=== PATIENT | male | born 1995 | race Caucasian/White ===

== ENCOUNTER 2019-01-31 13:40 | Inpatient (IN) | payer OTHER ==
[~2019-01-31] VITALS: Ht 167.6 cm; Wt 69.2 kg
[2019-01-31] MEDS ORDERED: diphenhydrAMINE 50 MG/1 ML VIAL IV ONE (14:15)
[2019-01-31] MEDS ORDERED: MECLIZINE HCL 25 MG TABLET PO ONE (14:15)
[2019-01-31] MEDS ORDERED: IV NORMAL SALINE 1000 ML BAG IV ONE ×2 (14:15→15:15)
[2019-01-31] MEDS ORDERED: METOCLOPRAMIDE HCL 10 MG/2 ML VIAL IV ONE (14:15)
[2019-01-31] MEDS ORDERED: diphenhydrAMINE 50 MG/1 ML VIAL ONE (14:17)
[2019-01-31] MEDS ORDERED: MECLIZINE HCL 25 MG TABLET ONE (14:17)
[2019-01-31] MEDS ORDERED: METOCLOPRAMIDE HCL 10 MG/2 ML VIAL ONE (14:17)
[2019-01-31 14:24] LABS: CREATININE 0.8 mg/dL (0.6-1.3); POTASSIUM 4.1 mmol/L (3.5-5.1)
[2019-01-31 14:29] LABS: BASOPHILS % (AUTO) 0.1 % (0.0-2.0); HEMATOCRIT 46.6 % (36.7-47.1); HEMOGLOBIN 16.1 g/dL (12.5-16.3); LYMPHOCYTES # (AUTO) 0.5 K/uL (20.0-40.0); LYMPHOCYTES % (AUTO) 5.8 % (20.5-51.5); MEAN CORPUSCULAR HEMOGLOBIN 30.2 uug (23.8-33.4); MEAN CORPUSCULAR HGB CONC 35 g/dL (32.5-36.3); MEAN CORPUSCULAR VOLUME 87.5 fL (73.0-96.2); MONOCYTES # (AUTO) 0.3 K/uL (2.0-10.0); MONOCYTES % (AUTO) 3.4 % (0.0-11.0); NEUTROPHILS # (AUTO) 8.6 K/uL (1.8-8.9); NEUTROPHILS % (AUTO) 90.7 % (38.5-71.5); PLATELET COUNT (AUTO) 289 K/uL (152-348); RED BLOOD CELL COUNT(AUTO) 5.33 MIL/uL (4.06-5.63); WHITE BLOOD COUNT (AUTO) 9.4 K/uL (3.6-10.2)
[2019-01-31 14:30] LABS: BILIRUBIN,DIRECT 0.1 mg/dL (0.0-0.2); BILIRUBIN,TOTAL 0.5 mg/dL (0.2-1.0); TOTAL PROTEIN, SERUM 7.6 g/dL (6.4-8.2)
[2019-01-31 14:58] LABS: ETHANOL < 3 MG/DL (0-0)
[2019-01-31 15:39] LABS: *BILIRUBIN,URIN NEGATIVE (NEGATIVE); *BLOOD, URINE NEGATIVE (NEGATIVE); *CLARITY,URINE CLEAR (CLEAR); *COLOR,URINE YELLOW (YELLOW); *KETONES,URINE 2+ (NEGATIVE); *UROBILINOGEN,URINE 0.2 E.U./dl (NORMAL); LEUKOCYTE ESTERASE ,URINE NEGATIVE (NEGATIVE); NITRITE, URINE NEGATIVE (NEGATIVE); UGLUCOSE NEGATIVE (NEGATIVE)
[2019-01-31 15:54] LABS: *AMPHETAMINE, URINE NEGATIVE (NEGATIVE); *BARBITURATE, URINE NEGATIVE (NEGATIVE); *CANNABINOID, URINE NEGATIVE (NEGATIVE); *COCCAINE, URINE NEGATIVE (NEGATIVE); *OPIATE, URINE NEGATIVE (NEGATIVE); *PHENCYCLIDINE SCREEN,URINE NEGATIVE (NEGATIVE)
[2019-01-31 15:55] LABS: MUCUS,URINE MANY /LPF (0-FEW); WBC,URINE 0-3 /HPF (0-3)
[2019-01-31] MEDS ORDERED: SCOPOLAMINE HYDROBROMIDE 1.5 MG PATCH TD SCH (16:45)
[2019-01-31] MEDS ORDERED: ASPIRIN 81 MG TAB.CHEW PO ONE (17:30)
[2019-01-31] MEDS ORDERED: ASPIRIN 81 MG TAB.CHEW ONE (17:41)
[2019-01-31] MEDS ORDERED: SCOPOLAMINE HYDROBROMIDE 1.5 MG PATCH TD ONE (17:41)
--- NOTE | 2019-01-31 18:12 | NUR ---
ADMITTING REPORT GIVEN TO KATE HACKETT.
--- NOTE | 2019-01-31 18:30 | NUR ---
Pt. admitted to [facility], under care of [employer]. Belongs List completed
[2019-01-31 18:54] VITALS: BP 111/69
[2019-01-31] MEDS ORDERED: Z GUARD REMEDY PASTE 57 GM TUBE TOP PRN (19:45)
[2019-01-31] MEDS ORDERED: ZOLPIDEM 5 MG TABLET PO PRN (19:45)
[2019-01-31] MEDS ORDERED: MAGNESIUM HYDROXIDE 30 ML LIQUID UDC PO PRN (19:45)
[2019-01-31] MEDS ORDERED: HYDROCODONE/APAP 5-325MG TABLET PO PRN (19:45)
[2019-01-31 20:21] VITALS: BP 107/58
[2019-01-31] MEDS: CARBAMIDE PEROXIDE OTIC DROP 15 ML BOTTLE EACH EAR SCH (20:58)
--- NOTE | 2019-01-31 21:00 | NUR ---
Admitted patient from ER. Dx: Dizziness. Patient is A/Ox4, no complaints of pain or SOB. Patient states that he still feels a little dizzy if he opens his eyes and feels slightly nauseous. Doesn't want to try eating yet. IVF started on the right AC, no s/s of infection or infiltration noted. Patient oriented to room and unit. Safety measures initiated. Bed is low and locked, call light within reach, bed alarm on for safety due to patient stating that he feels too dizzy to even walk, urinal provided. Will continue to monitor.
[2019-01-31] MEDS: IV NS 1000 ML 1,000 ML IV PRN (21:11)
[2019-01-31] MEDS: ONDANSETRON 4 MG/2 ML VIAL IV PRN (21:26)
[2019-02-01] VITALS: BP 114/69
[2019-02-01 04:00] VITALS: BP 120/64
--- NOTE | 2019-02-01 05:59 | NUR ---
Patient slept well throughout the night. No distress noted. Patient stated nausea with PRN Zofran given x1 and patient stated that he does not feel nauseous, but still a little dizzy. Offered patient PRN Antivert, but patient said he was able to tolerate the dizziness. Safety measures given. Will endorse to next shift.
[2019-02-01] MEDS: MECLIZINE HCL 25 MG TABLET PO PRN ×2 (06:11→17:19)
[2019-02-01] MEDS: PANTOPRAZOLE SODIUM 40 MG TABLET.DR PO SCH (06:13)
[2019-02-01 06:35] LABS: BASOPHILS % (AUTO) 0.5 % (0.0-2.0); EOSINOPHILS # (AUTO) 0.1 K/uL (0.0-0.7); EOSINOPHILS % (AUTO) 1.1 % (0.0-7.0); HEMATOCRIT 41.7 % (36.7-47.1); HEMOGLOBIN 14.5 g/dL (12.5-16.3); LYMPHOCYTES # (AUTO) 1.6 K/uL (20.0-40.0); LYMPHOCYTES % (AUTO) 22.6 % (20.5-51.5); MEAN CORPUSCULAR HEMOGLOBIN 30.1 uug (23.8-33.4); MEAN CORPUSCULAR HGB CONC 35 g/dL (32.5-36.3); MEAN CORPUSCULAR VOLUME 86.7 fL (73.0-96.2); MONOCYTES # (AUTO) 0.6 K/uL (2.0-10.0); MONOCYTES % (AUTO) 8.6 % (0.0-11.0); NEUTROPHILS # (AUTO) 4.9 K/uL (1.8-8.9); NEUTROPHILS % (AUTO) 67.2 % (38.5-71.5); PLATELET COUNT (AUTO) 286 K/uL (152-348); RED BLOOD CELL COUNT(AUTO) 4.81 MIL/uL (4.06-5.63); WHITE BLOOD COUNT (AUTO) 7.2 K/uL (3.6-10.2)
[2019-02-01 06:52] LABS: BILIRUBIN,TOTAL 0.7 mg/dL (0.2-1.0); CREATININE 0.8 mg/dL (0.6-1.3); MAGNESIUM 1.9 mg/dL (1.8-2.4); PHOSPHOROUS 3.2 mg/dL (2.5-4.9); POTASSIUM 3.1 mmol/L (3.5-5.1); TOTAL PROTEIN, SERUM 6.4 g/dL (6.4-8.2)
[2019-02-01 07:10] LABS: THYROID STIMULATING HORMONE 0.322 mIU/mL (0.358-3.740)
[2019-02-01] MEDS: IV NS 1000 ML 1,000 ML IV PRN ×2 (07:30→18:07)
--- NOTE | 2019-02-01 08:00 | NUR ---
received pt. resting in bed alert oriented x4. Pt. has IV in R AC 18 gauge intact patent running fluids. Pt. states he still feels dizzy. Pt. denies nausea. Pt. denies SOB/ difficulty breathing. Pt. denies pain. Safety measures in place. call light within reach. will continue to monitor pt.
[2019-02-01] MEDS: CARBAMIDE PEROXIDE OTIC DROP 15 ML BOTTLE EACH EAR SCH ×2 (09:14→21:00)
[2019-02-01 12:08] VITALS: BP 132/77
[2019-02-01] MEDS ORDERED: POTASSIUM CHLORIDE 20 MEQ TAB.PRT.SR PO ONE (12:15)
[2019-02-01] MEDS: ACETAMINOPHEN 325 MG TABLET PO PRN (12:32)
[2019-02-01] MEDS ORDERED: SWABABLE VALVE TRANSFER SET EA MC ONE (13:05)
[2019-02-01] MEDS ORDERED: IOHEXOL 350 100 ML INFUS..BTL ONE (13:06)
[2019-02-01] MEDS ORDERED: IV NORMAL SALINE 250 ML IV ONE (13:06)
--- NOTE | 2019-02-01 15:47 | NUR ---
Pt. had CTA of brain done today as well as seen by neurologist who ordered stat MRI of brain without contrast. Pt. still feels dizzy and is having difficulty with control of his arms. Provided pt. with tylenol where he now denies headache. safety measures in place. call light within reach. Will continue to monitor pt.
[2019-02-01 16:00] VITALS: BP 120/78
[2019-02-01 20:08] VITALS: BP 116/71
[2019-02-01] MEDS: AMOXICILLIN-CLAVUL 875-125MG TABLET PO SCH (21:00)
--- NOTE | 2019-02-02 05:52 | NUR ---
patient received lying in bed with sister at bedside. a/ox4. no signs of acute distress and v/s stable throughout shift. safety and comfort measures provided at all times. bed in lowest position, side rails up x2, bed alarm on. aware of limitations to call to get up. IVF running at 100cc/hr. all medication administered and needs met. possible MRI today, awaiting call. will continue to monitor and endorse accordingly.
[2019-02-02 05:56] VITALS: BP 112/70
[2019-02-02] MEDS: PANTOPRAZOLE SODIUM 40 MG TABLET.DR PO SCH (06:06)
[2019-02-02 06:41] LABS: BASOPHILS % (AUTO) 0.7 % (0.0-2.0); EOSINOPHILS # (AUTO) 0.2 K/uL (0.0-0.7); EOSINOPHILS % (AUTO) 2.7 % (0.0-7.0); HEMATOCRIT 42.3 % (36.7-47.1); HEMOGLOBIN 14.3 g/dL (12.5-16.3); LYMPHOCYTES # (AUTO) 1.7 K/uL (20.0-40.0); LYMPHOCYTES % (AUTO) 29.2 % (20.5-51.5); MEAN CORPUSCULAR HEMOGLOBIN 30.1 uug (23.8-33.4); MEAN CORPUSCULAR HGB CONC 34 g/dL (32.5-36.3); MEAN CORPUSCULAR VOLUME 88.9 fL (73.0-96.2); MONOCYTES # (AUTO) 0.6 K/uL (2.0-10.0); MONOCYTES % (AUTO) 11.3 % (0.0-11.0); NEUTROPHILS # (AUTO) 3.2 K/uL (1.8-8.9); NEUTROPHILS % (AUTO) 56.1 % (38.5-71.5); PLATELET COUNT (AUTO) 254 K/uL (152-348); RED BLOOD CELL COUNT(AUTO) 4.75 MIL/uL (4.06-5.63); WHITE BLOOD COUNT (AUTO) 5.7 K/uL (3.6-10.2)
[2019-02-02 07:17] LABS: CREATININE 0.9 mg/dL (0.6-1.3); MAGNESIUM 1.8 mg/dL (1.8-2.4); PHOSPHOROUS 3.1 mg/dL (2.5-4.9); POTASSIUM 3.7 mmol/L (3.5-5.1)
--- NOTE | 2019-02-02 08:00 | NUR ---
received pt. resting in bed alert oriented x4. Pt. has IV in R AC 18 gauge intact patent running fluids. Pt. denies pain/ discomfort. pt. denies SOB/ difficulty breathing. Safety measures in place. call light within reach. will continue to monitor pt.
[2019-02-02] MEDS: CARBAMIDE PEROXIDE OTIC DROP 15 ML BOTTLE EACH EAR SCH ×2 (08:25→21:29)
[2019-02-02] MEDS: AMOXICILLIN-CLAVUL 875-125MG TABLET PO SCH ×2 (08:26→21:29)
[2019-02-02] MEDS: ACETAMINOPHEN 325 MG TABLET PO PRN (10:49)
[2019-02-02 11:00] VITALS: BP 113/69
[2019-02-02] MEDS: ONDANSETRON 4 MG/2 ML VIAL IV PRN (11:44)
--- NOTE | 2019-02-02 11:45 | NUR ---
Pt. left via ambulance to get MRI of brain at [facility]. Pt. stable, vital signs stable. Parents with patient. Provided pt. with zofran to prevent nausea on car ride as well as tylenol for headache. MRI checklist given to ambulance. Will await arrival of pt.
--- NOTE | 2019-02-02 13:28 | NUR ---
Received pt. back from MRI. Pt. stable. Pt. denies pain/ discomfort. Pt. denies n/v/dizziness. Pt. denies diffiiculty breathing/ SOB. Safety Measures in place. Call light within reach. Will continue to monitor pt.
[2019-02-02] MEDS ORDERED: ASPIRIN 325 MG TABLET PO STA (15:52)
[2019-02-02 16:48] VITALS: BP 118/79
--- NOTE | 2019-02-02 17:07 | NUR ---
MRI results given to pt. by hospitalist Goyo at bedside with myself in the room. Family is updated on news and aware of plan of care. New orders and blood work in. Pt. denies pain/ discomfort/ dizziness/ n/ v/ at this time. Safety measures in place. call light within reach. Will continue to monitor pt.
[2019-02-02] MEDS: IV NS 1000 ML 1,000 ML IV PRN (18:52)
--- NOTE | 2019-02-02 20:00 | NUR ---
Received full report from AM nurse, and patient is in bed. Mother of patient is at bedside. Answered remaining questions regarding disease process and went over medications that patient is currently taking. During assessment, pt noted to have poor coordination on upper arms accompanied by mild weakness that is worse on the R side. Able to raise both feet with no issues, but only remained on air for 5 seconds. Still unable to stand and ambulate. Sinus chris to sinus rhythm on tele. Will do frequent rounding, emphasized importance of watching out for warning signs of stroke.
[2019-02-02 20:11] VITALS: BP 119/78
[2019-02-02] MEDS: ATORVASTATIN 40 MG TABLET PO SCH (21:29)
--- NOTE | 2019-02-03 | NUR ---
Pt is sleeping at this time, still sinus rhythm to chris, lowest at 47 to 67, no signs of distress.
[2019-02-03 00:35] VITALS: BP 122/79
--- NOTE | 2019-02-03 04:41 | NUR ---
Pt denies pain or discomfort, no nausea and vomiting. No signs of stroke. Will continue to monitor.
[2019-02-03 05:08] VITALS: BP 111/69
[2019-02-03 06:44] LABS: BASOPHILS # (AUTO) 0.1 K/uL (0.0-8.0); BASOPHILS % (AUTO) 0.9 % (0.0-2.0); EOSINOPHILS # (AUTO) 0.3 K/uL (0.0-0.7); EOSINOPHILS % (AUTO) 4.2 % (0.0-7.0); HEMATOCRIT 42.9 % (36.7-47.1); HEMOGLOBIN 14.6 g/dL (12.5-16.3); LYMPHOCYTES # (AUTO) 1.8 K/uL (20.0-40.0); LYMPHOCYTES % (AUTO) 29.3 % (20.5-51.5); MEAN CORPUSCULAR HEMOGLOBIN 29.9 uug (23.8-33.4); MEAN CORPUSCULAR HGB CONC 34 g/dL (32.5-36.3); MEAN CORPUSCULAR VOLUME 88.1 fL (73.0-96.2); MONOCYTES # (AUTO) 0.7 K/uL (2.0-10.0); MONOCYTES % (AUTO) 10.8 % (0.0-11.0); NEUTROPHILS # (AUTO) 3.3 K/uL (1.8-8.9); NEUTROPHILS % (AUTO) 54.8 % (38.5-71.5); PLATELET COUNT (AUTO) 276 K/uL (152-348); RED BLOOD CELL COUNT(AUTO) 4.87 MIL/uL (4.06-5.63); WHITE BLOOD COUNT (AUTO) 6.1 K/uL (3.6-10.2)
[2019-02-03] MEDS: PANTOPRAZOLE SODIUM 40 MG TABLET.DR PO SCH (06:58)
--- NOTE | 2019-02-03 07:33 | NUR ---
Pt reinforced with stroke education, and reminded him of warning signs. Printed education also provided. Pt stable overnight. Endorsed in stable condition.
[2019-02-03 08:22] LABS: CREATININE 0.8 mg/dL (0.6-1.3); MAGNESIUM 1.7 mg/dL (1.8-2.4); PHOSPHOROUS 4.1 mg/dL (2.5-4.9); POTASSIUM 3.6 mmol/L (3.5-5.1)
[2019-02-03] MEDS: CARBAMIDE PEROXIDE OTIC DROP 15 ML BOTTLE EACH EAR SCH ×2 (09:00→20:32)
[2019-02-03] MEDS: ASPIRIN 81 MG TAB.CHEW PO SCH (10:34)
[2019-02-03] MEDS: AMOXICILLIN-CLAVUL 875-125MG TABLET PO SCH ×2 (10:34→20:31)
[2019-02-03 11:04] VITALS: BP 119/76
[2019-02-03] MEDS: MAGNESIUM SULFATE/D5W 100 ML IV SCH ×2 (12:10→12:48)
--- NOTE | 2019-02-03 12:15 | NUR ---
magnesium total 2 gms started for mag 1.7 Addendum: 02/03/19 at 1215 by OLIVIER GERMAN RN Amended: Links added.
[2019-02-03 15:06] VITALS: BP 119/60
--- NOTE | 2019-02-03 15:52 | NUR ---
was informed by adult protective caseworker Kiesha that patient is going to be picked up by ambulance for 2d echo with bubble study in [facility]. steel pickler time 5pm. patient and family informed. Addendum: 02/03/19 at 1553 by OLIVIER GERMAN RN Amended: Links added.
--- NOTE | 2019-02-03 16:44 | NUR ---
to [facility] for 2Decho with bubble study. picked up by fel[facility]. report given to [facility] Addendum: 02/03/19 at 1644 by OLIVIER GERMAN RN Amended: Links added.
--- NOTE | 2019-02-03 18:00 | NUR ---
back to room. tele monitor sr with BBB Addendum: 02/03/19 at 1832 by OLIVIER GERMAN RN Amended: Links added.
[2019-02-03] MEDS: IV NS 1000 ML 1,000 ML IV PRN (18:11)
[2019-02-03 19:46] VITALS: BP 120/71
--- NOTE | 2019-02-03 19:52 | NUR ---
Pt is in bed with mother at bedside. No complaints of pain or discomfort. Normal sinus rhythm on tele at this time 88. Teaching regarding stroke recovery reinforced, family verbalized understanding. Still unable to walk, with poor coordination and mild weakness on upper extremities. Still with no BM.Will address today. Will continue to monitor on tele.
[2019-02-03] MEDS: ATORVASTATIN 40 MG TABLET PO SCH (20:31)
[2019-02-04 00:25] VITALS: BP 120/68
[2019-02-04] MEDS: IV NS 1000 ML 1,000 ML IV PRN (04:00)
[2019-02-04 05:23] VITALS: BP 106/54
[2019-02-04] MEDS: PANTOPRAZOLE SODIUM 40 MG TABLET.DR PO SCH (06:19)
--- NOTE | 2019-02-04 06:45 | NUR ---
No adverse events overnight. Patient slept with no issues, denies any new weakness, headache, dizziness. MOM given last night, but still unable to have BM. Encouraged patient to drink more water. Will properly endorse to AM nurse to f/up BM status and report to MD as needed. Patient also informed that walker/wheelchair requests will be made to PT/OT team, and they can give approval before being able to use. Read OT notes and indicated that patient is only able to use walker with 2 person assist. Fall and stroke precautions maintained. NIHSS scale monitoring started. Patient has been Sinus rhythm all night with rates of 70-80, but at around 4:00 AM, rates decreased to 65 and currently at 55 sinus chris. Pt responsive, with no changes. Able to give AM meds with no issues. Will endorse accordingly.
[2019-02-04 07:13] LABS: CREATININE 0.9 mg/dL (0.6-1.3); MAGNESIUM 2.1 mg/dL (1.8-2.4); PHOSPHOROUS 3.7 mg/dL (2.5-4.9)
[2019-02-04 07:17] LABS: BASOPHILS # (AUTO) 0.1 K/uL (0.0-8.0); BASOPHILS % (AUTO) 0.9 % (0.0-2.0); EOSINOPHILS # (AUTO) 0.3 K/uL (0.0-0.7); EOSINOPHILS % (AUTO) 4.4 % (0.0-7.0); HEMATOCRIT 43.2 % (36.7-47.1); HEMOGLOBIN 14.8 g/dL (12.5-16.3); LYMPHOCYTES # (AUTO) 2.2 K/uL (20.0-40.0); LYMPHOCYTES % (AUTO) 31.1 % (20.5-51.5); MEAN CORPUSCULAR HEMOGLOBIN 30.1 uug (23.8-33.4); MEAN CORPUSCULAR HGB CONC 34 g/dL (32.5-36.3); MEAN CORPUSCULAR VOLUME 87.7 fL (73.0-96.2); MONOCYTES # (AUTO) 0.7 K/uL (2.0-10.0); MONOCYTES % (AUTO) 9.9 % (0.0-11.0); NEUTROPHILS # (AUTO) 3.8 K/uL (1.8-8.9); NEUTROPHILS % (AUTO) 53.7 % (38.5-71.5); PLATELET COUNT (AUTO) 286 K/uL (152-348); RED BLOOD CELL COUNT(AUTO) 4.93 MIL/uL (4.06-5.63); WHITE BLOOD COUNT (AUTO) 7.1 K/uL (3.6-10.2)
[2019-02-04] MEDS: AMOXICILLIN-CLAVUL 875-125MG TABLET PO SCH ×2 (08:08→20:51)
[2019-02-04] MEDS: ASPIRIN 81 MG TAB.CHEW PO SCH (08:08)
[2019-02-04] MEDS: CARBAMIDE PEROXIDE OTIC DROP 15 ML BOTTLE EACH EAR SCH ×2 (08:11→08:18)
--- NOTE | 2019-02-04 09:24 | NUR ---
PATIENT IS IN BED, AWAKE, NO SOB,RESP EVEN NONLABORED, SKIN WARM AND DRY TO TOUCH, STILL NOTED WITH LACK OF COORDINATION TO UPPER EXTREMITIES, NOTED LACK OF COORDINATION TO RIGHT UPPER EXTREMITY MORE THAN LEFT UPPER EXTREMITY, HOWEVER ABLE TO HOLD THE WATER AND DRINK HIMSELF. STILL NOTED WITH EPISODES OF SINUS BRADLEY ON TELE. PATIENT STATED HE STILL FEELS DIZZY UPON CHANGING HIS POSITIONS. EMOTIONAL SUPPORT PROVIDED. CONTINUE TO MONITOR
[2019-02-04] MEDS ORDERED: MIRALAX 17 GM POWD.PACK PO PRN (11:45)
[2019-02-04 12:05] VITALS: BP 121/80
[2019-02-04 16:30] VITALS: BP 120/70
--- NOTE | 2019-02-04 16:51 | NUR ---
PATIENT IS ALERT, ORIENTED X4, VERBALLY RESPONSIVE, NO SOB, RESP EVEN NONLABORED, SKIN WARM AND DRY TO TOUCH, STILL NOTED WITH POOR COORDINATION TO RIGHT HAND. PATIENT AMBULATED TO THE BATHROOM AND HAD BM. PATIENT STATED HE DOES AMBULATE IN HIS ROOM, WITH FAMILY, SAFEY PREACAUTIONS ASSURED WITH FAMILY AND PATIENT. PATIENT AND FAMILY, HIS MOTHER VERBALIZED UNDERSTANDING OF SAFETY. OFFERED PATIENT SCD PUMPS AND EXPLAINED THE IMPROTANCE OF IT WHILE IN BED LONG HOURS, PATIENT STATED HE IS MOVING HIS LEGS FREQUENTLY, REFUSED TO HAVE SCD PUMPS. RISKS NAD BENEFITS EXPLAINED PATIENT VERBALIZED UNDERSTANDING OF IT.
--- NOTE | 2019-02-04 18:33 | NUR ---
reminded patient not to ambulate without assistant clinical nurse manager for safety, patient verbalized understanding of it.
--- NOTE | 2019-02-04 18:52 | NUR ---
noted patient ambulating in his room with ict sales assistant of family. safety precautions, patient promised he would not ambulate without ict sales assistant. education provided on fall precautions, risks and beneifts explained. patient and family verbalized understanding of it.
--- NOTE | 2019-02-04 19:30 | NUR ---
Received report from AM nurse. Patient is awake, alert and oriented x 4. Verbally responsive. Denies pain, headache or any discomfort. Bilateral public address system operator are strong. R hand slightly weaker, but better than yesterday. Able to walk with 1 person assist to the bathroom. Had 1 BM in the AM today and 4x urine output. Patient's mother is at bedside, and teaching regarding smoking cessation and stroke risk factors performed. Pt is vocal about motivation to quit and live a healthier balanced life. Also provided education on difference between outpatient/inpatient and home health rehab options. Family will be discussing it further with CM and insurance. Pt requested to have IV fluids DC'ed, patient has been eating and drinking well. DNP Goyo notified, and received orders to DC. Needs attended at this time. Will continue to monitor.
[2019-02-04 20:00] VITALS: BP 124/74
[2019-02-04] MEDS: ATORVASTATIN 40 MG TABLET PO SCH (20:52)
[2019-02-05 06:08] VITALS: BP 128/74
[2019-02-05] MEDS: PANTOPRAZOLE SODIUM 40 MG TABLET.DR PO SCH (06:50)
--- NOTE | 2019-02-05 06:50 | NUR ---
No adverse events overnight. Patient slept with no issues, denies any new weakness, headache, dizziness. Fall and stroke precautions maintained. NIHSS scale monitoring done, negative. Pt wanted to sleep and refused AM meds. Will endorse accordingly.
[2019-02-05] MEDS: ASPIRIN 81 MG TAB.CHEW PO SCH (09:43)
[2019-02-05] MEDS: AMOXICILLIN-CLAVUL 875-125MG TABLET PO SCH ×2 (09:43→20:45)
[2019-02-05 11:34] VITALS: BP 127/85
--- NOTE | 2019-02-05 15:32 | NUR ---
Social Work Consult ORNAMENTAL IRONWORKING SUPERVISOR performed PhQ-9 depression screening and pt. scored zero with no report of any depression currently or prior to the stroke. Patient is alert and oriented x4 at time of assessment. His parents are supportive and present in his room. They left for this evaluation. 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 Per Audrey Souza, case resolution specialist, pt. is being transferred to [facility] in the new few days. Patient and his parents are aware of the plan and time frame. Patient will receive stroke rehabilitation and education about stroke at [facility].
[2019-02-05 16:15] VITALS: BP 123/87
--- NOTE | 2019-02-05 18:14 | NUR ---
pt. compliant with plan of care. Parents spoke with hospitalist, case management, tankroom tender at bedside. Family up to date with rehab and plan of care. Pt. took all medications. Pt. walked with physical therapy. Pt. denies pain/ discomfort. Pt. denies SOB/ difficulty breathing. All needs met. Safety measures in place. call light within reach. will continue to monitor pt.
--- NOTE | 2019-02-05 19:30 | NUR ---
Received patient walking in hallway with assistance of family, patient is steady, a little weak. A/Ox4. Weakness noted to upper extremities, right side more than left. patient stated that he is feeling much better. No complaints of pain or SOB. Heplock on the left forearm is intact and patent. Safety measures initiated. Bed is low and locked, call light within reach. Will continue to monitor.
[2019-02-05 20:34] VITALS: BP 136/91
[2019-02-05] MEDS: ATORVASTATIN 40 MG TABLET PO SCH (20:45)
[2019-02-06 04:00] VITALS: BP 117/77
[2019-02-06] MEDS: PANTOPRAZOLE SODIUM 40 MG TABLET.DR PO SCH (07:00)
--- NOTE | 2019-02-06 07:30 | NUR ---
RECEIVED PATIENT IN BED RESTING , NO S/S OF ACUTE DISTRESS NOTED, KEPT CLEAN AND DRY AT ALL TIMES. CALL LIGHT WITHIN REACH. WILL CONTINUE TO MONITOR.
[2019-02-06] MEDS: ASPIRIN 81 MG TAB.CHEW PO SCH (08:58)
[2019-02-06] MEDS: AMOXICILLIN-CLAVUL 875-125MG TABLET PO SCH ×2 (08:59→20:02)
[2019-02-06 11:09] VITALS: BP 111/63
[2019-02-06] MEDS ORDERED: AMOX-430 PO (12:09)
[2019-02-06] MEDS ORDERED: ATOR80TA PO (12:09)
[2019-02-06] MEDS ORDERED: ASPI81TA31 PO (12:09)
[2019-02-06 15:34] VITALS: BP 116/65
[2019-02-06 19:00] VITALS: BP 111/63
--- NOTE | 2019-02-06 19:48 | NUR ---
Received patient awake and alert in bed, with mother at bedside. No distress noted. Patient complaining of a small headache, requesting Tylenol. No complaints of SOB. Heplock on the left forearm is intact and patent. Patient is to be discharged tomorrow to a rehab facility in [place]. Safety measures initiated. Bed is low and locked, call light within reach. Will continue to monitor.
[2019-02-06] MEDS: ATORVASTATIN 40 MG TABLET PO SCH (20:02)
[2019-02-06] MEDS: ACETAMINOPHEN 325 MG TABLET PO PRN (20:02)
[2019-02-06 21:09] VITALS: BP 124/81
[2019-02-06 22:20] LABS: PTT-LA 35.9 sec (0.0-51.9); THROMBIN TIME 16.2 sec (0.0-23.0)
[2019-02-07 04:57] VITALS: BP 117/73
[2019-02-07] MEDS: PANTOPRAZOLE SODIUM 40 MG TABLET.DR PO SCH (06:36)
--- NOTE | 2019-02-07 06:47 | NUR ---
Patient slept well, no distress noted. no complaints of pain or SOB. Ambulance stated that warehouse picker time is at 9:45am. Will endorse to next shift.
[2019-02-07] MEDS: AMOXICILLIN-CLAVUL 875-125MG TABLET PO SCH (09:09)
[2019-02-07] MEDS: ASPIRIN 81 MG TAB.CHEW PO SCH (09:09)
--- NOTE | 2019-02-07 10:00 | NUR ---
follow up with [facility] for schedule pickup and state that they mess up on the schedule that the earliest brass pickler is 1130.
--- NOTE | 2019-02-07 11:40 | NUR ---
patient discharge to [facility], via [facility] with 2 EMT, discharge instruction given and verbalized understanding. IV and ID band removed, no c/o pain at this time, kept clean and dry at all times. belonging accounted for and and signed. question and concerns addressed.
[2019-02-07 11:41] VITALS: BP 132/81
[2019-02-13 02:10] LABS: BETA-2-GLYCOPROTEIN IGG/M/A < 9 (0-25); LUPUS INTERPRETATION Comment: (.)
== END 2019-02-07 11:40 | DRG 66 ==
LOC: ER 13:40 → TELE3 18:14 → MEDSURG3 02-01 19:29 → TELE3 02-02 18:40 → MEDSURG3 02-04 15:10
PROVIDERS: ADMIT Hospitalist; ATTEND Hospitalist
DX: I63.89 Other cerebral infarction (principal); H55.00 Unspecified nystagmus; R27.0 Ataxia, unspecified; R11.2 Nausea with vomiting, unspecified; R40.2252 Coma scale, best verbal response, oriented, at arrival to emergency department; R40.2362 Coma scale, best motor response, obeys commands, at arrival to emergency department; R40.2142 Coma scale, eyes open, spontaneous, at arrival to emergency department; R29.708 NIHSS score 8; H66.93 Otitis media, unspecified, bilateral; E87.6 Hypokalemia; E83.42 Hypomagnesemia; E05.90 Thyrotoxicosis, unspecified without thyrotoxic crisis or storm; R47.81 Slurred speech; F17.298 Nicotine dependence, other tobacco product, with other nicotine-induced disorders; H53.461 Homonymous bilateral field defects, right side
CPT/HCPCS: 36415; 70030-TC; 70450; 70496; 70551; 80307; 83690; 83735; 84100; 84443; 85025; 85305; 85613; 87040; 93005; A4663; G0378; G0480; J1200; J2405; J2765; J3475; J7030; J7050; J8597; Q9967